=== PATIENT | female | born 2000 | race Caucasian/White ===

== ENCOUNTER 2024-11-16 18:22 | Emergency (ER) | payer BC, MEDICAID, SELFPAY ==
[2024-11-16 19:03] VITALS: BP 111/59; PULSE 109; RESP 16; TEMP 36.7; O2SAT 100; BMI 18.2
[2024-11-16 19:53] LABS: Basophils # 0.1 10^3/uL (0.0-0.1); Basophils % 0.8 %; Eosinophils # 0.2 10^3/uL (0.0-0.8); Eosinophils % 1.9 %; Hematocrit 36.5 % (36-47); Lymphocytes # 1.7 10^3/uL (0.8-4.8); Lymphocytes % 19.8 %; Mean Corpuscular HGB Conc 31.8 g/dL (30-55); Mean Corpuscular Hemoglobin 27.6 pg (27-33); Mean Corpuscular Volume 86.9 fl (85-98); Mean Platelet Volume 10.2 fL (7.4-10.4); Monocytes # 0.8 10^3/uL (0.2-0.9); Monocytes % 9.1 %; Neutrophils # 5.68 10^3/uL (1.8-7.7); Neutrophils % 68.2 %; Nucleated Red Blood Cells % 0 %; Platelet Count 310 10^3/cmm (157-399); Red Cell Distribution Width 13.4 % (12.1-15.1); White Blood Count 8.34 10^3/uL (3.29-11.43)
--- NOTE | 2024-11-16 19:57 | W.ED.ABDPA2 ---
HPI - Abdominal Pain General: Chief Complaint: Abdominal Pain Stated Complaint: Pain in lower R overy Time Seen by Provider: 11/16/24 19:15 Source: patient and family (mother) Mode of arrival: ambulatory Limitations: no limitations History of Present Illness: Patient is a 24-year-old female who presents to ED today with a complaint of pain to her lower left pelvis/groin region that started today. She feels like pain is worse with sitting up and walking. She has no other complaints apart from pain. Last menstrual cycle was last month and reportedly normal. She has never been sexually active. She does not describe dysuria, frequency, urgency. No fevers. She has not noticed any masses or bulges to suggest a hernia. She is not having pain in her abdomen. Normal bowel movements. MD elicited complaint: other (pelvic pain) Pertinent past history: none Onset (ago): hour(s) Pain Consistency: constant Location: Pelvis Severity: moderate Quality: sharp Radiation: none Migration to: no migration Relieving factors: other (lying down) Associated Symptoms: Reports no associated symptoms; Denies change in bowel habits, chills, diarrhea, dysuria, fever(s), hematuria, nausea and vomiting Related Data Previous Rx's ?Medication ?Instructions ?Recorded fluticasone propionate 50 2 spray intranasal DAILY #16 grams 07/20/22 mcg/actuation nasal spray,suspension (Flonase Allergy Relief) loratadine 10 mg tablet (Claritin) 10 mg PO DAILY #30 tabs 09/16/22 tramadol 50 mg tablet 50 mg PO Q6H PRN pain #20 tabs 11/16/24 Allergies Allergy/AdvReac Type Severity Reaction Status Date / Time No Known Allergies Allergy Unverified 09/16/22 13:16 Review of Systems Const: Denies: fever(s), chills, body aches, fatigue or malaise Card: Denies: chest pain Resp: Denies: dyspnea GI: Denies: abdominal pain, nausea, vomiting, diarrhea or change in bowel habits : Reports: pelvic pain; Denies: flank pain, difficulty voiding, dysuria, urinary frequency, urinary urgency, urinary hesitancy, hematuria, vaginal odor, vaginal discharge or irregular period Musc: Denies: back pain Skin/Breast: Denies: rash Neuro: Denies: headache(s) PFS ED PFSH: Social History Smoking and tobacco/nicotine status: never used tobacco/nicotine Second hand smoke exposure: No Alcohol intake: never Substance/Drug Use: never Adopted: No Caregiver/support person: No Lives independently: Yes Household members: family Housing: House Marital status: Single Number of children: 0 Physical Exam Const: COMMON NORMALS: no acute distress, patient oriented x3, no limitations, healthy appearing, alert and well nourished GENERAL APPEARANCE: cooperative and anxious NUTRITIONAL APPEARANCE: thin Resp: COMMON NORMALS: normal respiratory effort and clear to auscultation bilaterally AUSCULTATION: clear to auscultation bilaterally Cardio: COMMON NORMALS: regular rhythm RATE: tachycardic (states she is anxious) RHYTHM: regular rhythm GI: COMMON NORMALS: Normal to inspection, nondistended, normoactive bowel sounds present, Soft to palpation, non-tender, No hepatosplenomegaly present and no masses INSPECTION: Yes normal to inspection AUSCULTATION: Yes normoactive bowel sounds PALPATION: Yes Soft to palpation, No Guarding due to palpation present (GI), No Rigid due to palpation and Yes No hepatosplenomegaly present GI image (female):  1. TTP L pelvis; inguinal lymphadenopathy vs easily palpable lymph nodes as patient is very thin; no hernia : COMMON NORMALS: Yes no CVA tenderness BLADDER/KIDNEY EXAM: Yes no CVA tenderness Back/Pelvis: COMMON NORMALS: no CVA tenderness and thoracic and lumbar spine normal to inspection Extremity: GENERAL: Yes normal exam except as noted Neuro: COMMON NORMALS: patient oriented x3 and gait normal SENSORIUM/ORIENTATION: Yes alert Skin: COMMON NORMALS: no rashes or lesions noted GENERAL SKIN EXAM: no rashes or lesions noted Course Vital Signs: Vital signs: Vital Signs Temperature 98.1 F 11/16/24 19:03 Pulse Rate 103 H 11/16/24 22:34 Respiratory Rate 16 11/16/24 19:03 Blood Pressure 116/78 11/16/24 22:34 Pulse Oximetry 100 11/16/24 22:34 Oxygen Delivery Me thod Room Air 11/16/24 22:34 MDM - Abdominal Pain Medical Decision Making Patient found to have a large, 7 cm rounded mass suggestive of an endometrioma. Radiologist commented a hemorrhagic cyst could also have this appearance. Recommending follow-up ultrasound in 6 weeks. Will give patient something she may use sparingly for severe discomfort and have her follow-up with our women's health clinic. Signs and symptoms that should prompt a return visit were discussed including signs and symptoms of an ovarian torsion. Patient/mother verbalized understanding. Medical Records I reviewed the patient's medical records. Lab Data I reviewed the patient's lab results. 11/16/24 19:44 11/16/24 19:44 Labs/Radiology: Radiology Impressions Pelvis Ultrasound 11/16/24 20:12 IMPRESSION: 1. 6.8 x 6.9 x 6.5 cm rounded mass with uniform low-level internal echoes throughout suggestive of endometrioma. A hemorrhagic cyst could have this appearance. Recommend 6 week follow-up pelvic ultrasound. If finding persists, contrast-enhanced MRI of the pelvis should be considered. 2. Otherwise unremarkable pelvic ultrasound. Laboratory Results WBC 8.34 10^3/uL (3.29-11.43) 11/16/24 19:44 RBC 4.20 10^6/uL (3.85-5.65) 11/16/24 19:44 Hgb 11.60 g/dL (11.27-16.99) 11/16/24 19:44 Hct 36.5 % (36-47) 11/16/24 19:44 MCV 86.9 fl (85-98) 11/16/24 19:44 MCH 27.6 pg (27-33) 11/16/24 19:44 MCHC 31.8 g/dL (30-55) 11/16/24 19:44 RDW 13.4 % (12.1-15.1) 11/16/24 19:44 Plt Count 310 10^3/cmm (157-399) 11/16/24 19:44 MPV 10.2 fL (7.4-10.4) 11/16/24 19:44 Neut % (Auto) 68.2 % 11/16/24 19:44 Lymph % (Auto) 19.8 % 11/16/24 19:44 [place] % (Auto) 9.1 % 11/16/24 19:44 Eos % (Auto) 1.9 % 11/16/24 19:44 Baso % (Auto) 0.8 % 11/16/24 19:44 Neut # (Auto) 5.68 10^3/uL (1.8-7.7) 11/16/24 19:44 Lymph # (Auto) 1.7 10^3/uL (0.8-4.8) 11/16/24 19:44 [place] # (Auto) 0.8 10^3/uL (0.2-0.9) 11/16/24 19:44 Eos # (Auto) 0.2 10^3/uL (0.0-0.8) 11/16/24 19:44 Baso # (Auto) 0.1 10^3/uL (0.0-0.1) 11/16/24 19:44 Nucleated RBC % (auto) 0 % 11/16/24 19:44 Nucleated RBCs # 0.0 /100WBC 11/16/24 19:44 Sodium 139 mmol/L (136-145) 11/16/24 19:44 Potassium 3.7 mmol/L (3.5-5.1) 11/16/24 19:44 Chloride 104 mmol/L (98-107) 11/16/24 19:44 Carbon Dioxide 23 mmol/L (22-29) 11/16/24 19:44 Anion Gap 15.7 (5-19) 11/16/24 19:44 BUN 10 mg/dL (6-20) 11/16/24 19:44 Creatinine 0.4 mg/dL (0.5-0.9) L 11/16/24 19:44 GFR Calculation 197.8 mL/min (90-130) H 11/16/24 19:44 Glucose 99 mg/dL (65-115) 11/16/24 19:44 Calculated Osmolality 287 mOsm/kg (285-295) 11/16/24 19:44 Calcium 9.5 mg/dL (8.5-10.5) 11/16/24 19:44 Total Bilirubin 0.2 mg/dL (0.15-1.2) 11/16/24 19:44 AST 17 U/L (0-32) 11/16/24 19:44 ALT 12 U/L (0-33) 11/16/24 19:44 Alkaline Phosphatase 61 U/L (35-105) 11/16/24 19:44 Total Protein 7.4 g/dL (6.6-8.7) 11/16/24 19:44 Albumin 4.6 g/dL (3.5-5.2) 11/16/24 19:44 Globulin 2.8 g/dL (1.3-4.6) 11/16/24 19:44 HCG, Qual Negative (Negative) 11/16/24 19:44 Urine Color Yellow (Yellow) 11/16/24 20:10 Urine Appearance Clear (CLEAR) 11/16/24 20:10 Urine pH 5.5 (5-7) 11/16/24 20:10 Ur Specific [place] 1.026 (1.005-1.030) 11/16/24 20:10 Urine Protein 1+ (Negative) A 11/16/24 20:10 Urine Glucose (UA) Negative (Normal) 11/16/24 20:10 Urine Ketones 1+ (Negative) H 11/16/24 20:10 Urine Blood Negative (Negative) 11/16/24 20:10 Urine Nitrate Negative (Negative) 11/16/24 20:10 Urine Bilirubin Negative (Negative) 11/16/24 20:10 Urine Urobilinogen 1.0 mg/dL (Negative) 11/16/24 20:10 Ur Leukocyte Esterase Negative (Negative) 11/16/24 20:10 Urine RBC 0-4 /hpf (0-2) H 11/16/24 20:10 Urine WBC 0-4 /hpf (0-5) H 11/16/24 20:10 Ur Squamous Epith Cells 5-10 /hpf (0-5) H 11/16/24 20:10 Amorphous Sediment Not Reportable 11/16/24 20:10 Urine Bacteria Trace /hpf (NONE) 11/16/24 20:10 Urine Mucus Trace /hpf 11/16/24 20:10 All radiology interpretation(s) finalized by discharge Discharge Plan Discharge Patient Disposition: Home Clinical Impression: Endometrioma Condition: Stable Prescriptions: New tramadol 50 mg tablet 50 mg PO Q6H PRN (Reason: pain) Qty: 20 0RF No Action fluticasone propionate [Flonase Allergy Relief] 50 mcg/actuation spray,suspension 2 spray intranasal DAILY Qty: 16 0RF Rx Instructions: administer into each nostril loratadine [Claritin] 10 mg tablet 10 mg PO DAILY Qty: 30 11RF Discharge Orders: Discharge ED (Routine); Ordered 11/16/24 Ordered By: Shannon Castillo Referrals: [facility] [Other] Octavia Nieto FNP-C [Primary Care Provider] - Patient Instructions: Opioid Safety, Pain Management Activity Restrictions/Additional Instructions: As we discussed, her ultrasound today showed a large almost 7 cm possible endometrioma versus hemorrhagic cyst. We will have her follow-up with our women's health clinic for further evaluation. She may use the tramadol sparingly as needed for severe pain. We discussed other conservative therapies she may use for discomfort. She may return to the emergency department for onset of severe, constant, or worsening pain, or any other concerns she may have. Print Language: Thai Coding Level of Care Code ED Quality Control Projectionist for Attila Hamm
[2024-11-16 20:10] LABS: Alanine Aminotransferase 12 U/L (0-33); Albumin Level 4.6 g/dL (3.5-5.2); Alkaline Phosphatase 61 U/L (35-105); Anion Gap 15.7 (5-19); Aspartate Amino Transferase 17 U/L (0-32); Blood Urea Nitrogen 10 mg/dL (6-20); Calcium 9.5 mg/dL (8.5-10.5); Carbon Dioxide 23 mmol/L (22-29); Chloride 104 mmol/L (98-107); Creatinine Clr Calc Pharmacy 193.6595; Globulin 2.8 g/dL (1.3-4.6); Glomerular Filtration Rate 197.8 mL/min (90-130); Glucose 99 mg/dL (65-115); Osmolality Calculated 287 mOsm/kg (285-295); Potassium 3.7 mmol/L (3.5-5.1); Sodium 139 mmol/L (136-145); Total Bilirubin 0.2 mg/dL (0.15-1.2); Total Protein 7.4 g/dL (6.6-8.7)
--- NOTE | 2024-11-16 20:12 | USR_ITS ---
PROCEDURE INFORMATION: Exam: US Pelvis Complete, Transabdominal and US Duplex Artery or Vein, Ovaries, Limited Exam date and time: 11/16/2024 8:42 PM Age: 24 years old Clinical indication: Nulligravida, never sexually active 24yo complaining of left pelvic pain. ; Additional info: Transabdominal L pelvic/groin/ovary pain? TECHNIQUE: Imaging protocol: Real-time transabdominal pelvic ultrasound (non-obstetric) with image documentation. Real-time duplex ultrasound scan of the arterial or venous flow of the ovaries with B-mode, color Doppler flow and spectral waveform analysis. Complete pelvic ultrasound. Limited duplex. Duplex exam was performed to evaluate for torsion and other vascular conditions. COMPARISON: No relevant prior studies available. FINDINGS: Uterus: The uterus is within normal limits measuring 6.1 x 5.6 x 4.7 cm. No uterine masses are identified. The endometrium is not visualized. Right ovary/adnexa: 6.8 x 6.9 x 6.5 cm rounded mass with uniform low-level internal echoes throughout suggestive of endometrioma. There is normal flow in the adjacent soft tissue suggesting normal ovarian flow. The right ovary itself is not definitively identified. Left ovary/adnexa: There is normal arterial flow in the left ovary. The left ovary is normal and measures 3.2 x 1.1 x 2.3 cm. Intraperitoneal space: No pelvic free fluid is seen. Urinary bladder: The bladder is unremarkable. US/US pelvic complete* 22150 IMPRESSION: 1. 6.8 x 6.9 x 6.5 cm rounded mass with uniform low-level internal echoes throughout suggestive of endometrioma. A hemorrhagic cyst could have this appearance. Recommend 6 week follow-up pelvic ultrasound. If finding persists, contrast-enhanced MRI of the pelvis should be considered. 2. Otherwise unremarkable pelvic ultrasound.
[2024-11-16 20:17] LABS: HCG, Serum Qual Negative (Negative)
[2024-11-16 20:27] LABS: Bilirubin Urine Negative (Negative); Blood Urine Negative (Negative); Glucose Urine UA Negative (Normal); Ketones Urine 1+ (Negative); Leukocyte Esterase Urine Negative (Negative); Nitrate Urine Negative (Negative); Protein Urine 1+ (Negative); Specific Gravity, Urine 1.026 (1.005-1.030); Urine Appearance Clear (CLEAR); Urine Color Yellow (Yellow); pH Urine 5.5 (5-7)
[2024-11-16 21:00] LABS: Add Urine Microscopic? YES; Bacteria Urine TRACE /hpf; Mucus Urine TRACE /hpf; RBC Urine 0-4 /hpf (0-2); UA Manual Slide Review YES; UA Slide Review UA Slide Review Perf; WBC Urine 0-4 /hpf (0-5)
[2024-11-16 22:34] VITALS: BP 116/78; PULSE 103; O2SAT 100
[2024-11-16] MEDS: TRAMadol 50 mg Tablet PO (23:48)
[2024-11-16 23:49] VITALS: BP 133/75; PULSE 108; RESP 16; O2SAT 99
--- NOTE | 2024-11-17 15:55 | DCPLANNER ---
messaged [facility] for er f/u
== END 2024-11-16 23:50 | disposition home or self-care (01) ==
PROVIDERS: Emergency Provider Physician Assistant; PCP Nurse Practitioner Family
DX: N80.121 Deep endometriosis of right ovary (principal)
CPT/HCPCS: 36415; 76856; 80053; 81001; 84703; 85025; 99284